=== PATIENT | female | born 1985 | race Caucasian/White ===

== ENCOUNTER 2020-06-29 14:16 | Emergency (ER) | payer BC ==
[~2020-06-29] VITALS: Ht 157.5 cm; Wt 73.0 kg
[2020-06-29] MEDS ORDERED: amLODIPine 5mg tablet PO ONE (15:55)
[2020-06-29] MEDS ORDERED: HYDROchlorothiazide 25mg tablet PO ONE (15:55)
[2020-06-29] MEDS ORDERED: AMLO2.5T2 PO (15:59)
[2020-06-29] MEDS ORDERED: HYDR12.55 PO (15:59)
[2020-06-29] MEDS ORDERED: amLODIPine 2.5mg tablet PO ONE (16:00)
[2020-06-29] MEDS ORDERED: HYDROchlorothiazide 12.5mg capsule PO ONE (16:00)
[2020-06-29] MEDS ORDERED: ondansetron 4mg rapidly disintigrating tab PO ONE (16:15)
[2020-06-29 16:24] VITALS: BP 169/109
== END 2020-06-29 16:25 | disposition home or self-care (01) ==
LOC: ER 14:16
DX: G44.209 Tension-type headache, unspecified, not intractable (principal); I10 Essential (primary) hypertension; Z79.899 Other long term (current) drug therapy
CPT/HCPCS: 99284